=== PATIENT | male | born 1940 | race Caucasian/White ===

== ENCOUNTER 2017-11-13 22:50 | Emergency (ER) | payer MEDICARE, BC ==
[~2017-11-13] VITALS: Ht 172.7 cm; Wt 60.0 kg
[2017-11-14 00:04] LABS: CULTURE INDICATED? YES; MICROSCOPIC INDICATED
[2017-11-14 01:18] VITALS: BP 147/78
== END 2017-11-14 01:20 | disposition home or self-care (01) ==
LOC: ED 23:59
DX: R10.30 Lower abdominal pain, unspecified (principal); R33.8 Other retention of urine; N40.0 Benign prostatic hyperplasia without lower urinary tract symptoms; R31.9 Hematuria, unspecified; I10 Essential (primary) hypertension; F17.200 Nicotine dependence, unspecified, uncomplicated; Z85.46 Personal history of malignant neoplasm of prostate
CPT/HCPCS: 51702; 81001; 87086; 99284